=== PATIENT | female | born 1960 | race Caucasian/White ===

== ENCOUNTER → 2016-10-11 | Outpatient (CLI) | payer MEDICAID, OTHER | LOC: FIMAGING 11:02 | DX: Z12.31 Encounter for screening mammogram for malignant neoplasm of breast (principal) | CPT/HCPCS: G0202 ==

== ENCOUNTER → 2016-11-17 | Outpatient (CLI) | payer MEDICAID | LOC: FIMAGING 12:12 | PROVIDERS: ATTEND Internal Medicine | DX: M12.842 Other specific arthropathies, not elsewhere classified, left hand (principal) ==

== ENCOUNTER → 2017-10-06 | Outpatient (CLI) | payer MEDICAID | LOC: FIMAGING 06:58 | PROVIDERS: ATTEND Internal Medicine | DX: M75.121 Complete rotator cuff tear or rupture of right shoulder, not specified as traumatic (principal); M25.811 Other specified joint disorders, right shoulder; M75.21 Bicipital tendinitis, right shoulder ==

== ENCOUNTER → 2018-10-08 | Outpatient (CLI) | payer MEDICAID | LOC: FIMAGING 14:27 | PROVIDERS: ATTEND Internal Medicine | DX: M75.101 Unspecified rotator cuff tear or rupture of right shoulder, not specified as traumatic (principal) ==

== ENCOUNTER → 2018-11-29 | Outpatient (CLI) | payer MEDICAID | LOC: FIMAGING 18:36 | PROVIDERS: ATTEND Internal Medicine | DX: R51 Headache (principal); R42 Dizziness and giddiness; H91.93 Unspecified hearing loss, bilateral | CPT/HCPCS: 70551-PN ==